=== PATIENT | female | born 1955 | race Caucasian/White ===

== ENCOUNTER → 2017-04-02 | Outpatient (CLI) | payer BC, OTHER ==
[~2017-04-02] MED LIST: CHOL5000 PO; HYDR-2374 PO; HYDR-3583 PO; METF850T PO; MOBI15TA PO; SELE200T17 PO; TIRO100C PO; TIRO25CA PO; VITA250T3 PO; VITACAP7 PO; ZANA2CAP PO
[2017-04-02 10:49] LABS: AUTOMATED NEUTROPHIL # 4.2 TH/MM3 (1.8-7.7); BASOPHIL % 0.5 % (0.0-2.0); EOSINOPHIL # 0.1 TH/MM3 (0-0.4); HEMATOCRIT 40.3 % (35.0-46.0); HEMO FLAGS DIFF FINAL; LYMPH % 33.2 % (9.0-44.0); LYMPHOCYTE # 2.4 TH/MM3 (1.0-4.8); MEAN CELL VOLUME 90.6 FL (80.0-100.0); MEAN CORPUSCULAR HEMOGLOBIN 31.2 PG (27.0-34.0); MEAN CORPUSCULAR HGB CONC 34.4 % (32.0-36.0); MONO % 5.6 % (0.0-8.0); NEUT % 59.7 % (16.0-70.0); PLATELET COUNT 288 TH/MM3 (150-450); RED BLOOD COUNT 4.44 MIL/MM3 (4.00-5.30); RED CELL DISTRIBUTION WIDTH 13.1 % (11.6-17.2); WHITE BLOOD COUNT 7.1 TH/MM3 (4.0-11.0)
[2017-04-02 10:55] LABS: BACTERIA, URINE RARE /hpf; BLOOD, URINE NEG (NEG); COMMENT (UR) CULT NOT INDICATED; CULTURE IF INDICATED CULT NOT INDICATED; GLUCOSE,URINE NEG (NEG); KETONE, URINE NEG (NEG); MUCUS URINE FEW /lpf (OCC); NITRITE,URINE NEG (NEG); SQUAMOUS EPITHELIAL CELL URINE <1 /hpf (0-5); URINE COLOR LIGHT-YELLOW (YELLW/STRAW)
[2017-04-02 10:58] LABS: APTT (PATIENT) 25.2 SEC (24.3-30.1); INTERNATIONAL NORMALIZED RATIO 0.9 RATIO; PROTHROMBIN TIME - PATIENT 9.8 SEC (9.8-11.6)
[2017-04-02 11:15] LABS: ANION GAP 8 MEQ/L (5-15); AST (GOT) 22 U/L (15-37); BLOOD UREA NITROGEN 10 MG/DL (7-18); CHLORIDE 101 MEQ/L (98-107); GLOMERULAR FILTRATION RATE 64 ML/MIN (>89); GLUCOSE,FASTING 108 MG/DL (74-99); POTASSIUM 3.8 MEQ/L (3.5-5.1); SODIUM (NA) 138 MEQ/L (136-145)
[2017-04-02 11:16] LABS: ALT (GPT) 49 U/L (10-53)
[2017-04-02 11:18] LABS: ALKALINE PHOSPHATASE 89 U/L (45-117); TOTAL BILIRUBIN ADULT 0.5 MG/DL (0.2-1.0)
--- NOTE | 2017-04-02 11:40 | RADRPT ---
EXAM DATE/TIME: 04/02/2017 11:09 [facility] COMPARISON: No previous studies available for comparison. INDICATIONS : Evaluate for pneumonia, pneumothorax or communicable disease. Pre-op for L4-5 laminectomy on 04/07/20 17 MEDICAL HISTORY : Diabetes mellitus type II. SURGICAL HISTORY : None. ENCOUNTER: Initial ACUITY: 1 day PAIN SCORE: 0/10 LOCATION: Bilateral chest FINDINGS: PA and lateral views of the chest demonstrate the lungs to be symmetrically aerated without evidence of mass, infiltrate or effusion. The cardiomediastinal contours are unremarkable. Osseous structure s are intact. CONCLUSION: No acute cardiopulmonary process. Ramon Escalera MD on April 02, 2017 at 11:37 Board Certified Radiologist. This report was verified electronically.
--- NOTE | 2017-04-02 17:56 | EKG ---
Date Performed: 04/02/2017 Time Performed: 10:34:49 PTAGE: 62 years EKG: SINUS BRADYCARDIA BORDERLINE ECG NO PREVIOUS TRACING DOCTOR: Perico Vazquez Interpretating Date/Time 04/02/2017 17:55:29
== END ==
LOC: CPRE 10:07
PROVIDERS: ATTEND Neurological Surgery
DX: Z01.812 Encounter for preprocedural laboratory examination (principal); Z01.811 Encounter for preprocedural respiratory examination; Z01.810 Encounter for preprocedural cardiovascular examination; Z01.818 Encounter for other preprocedural examination; R94.31 Abnormal electrocardiogram [ECG] [EKG]; M51.26 Other intervertebral disc displacement, lumbar region
CPT/HCPCS: 36415; 71020; 80053; 81001; 85025; 85610; 85730; 93005

== ENCOUNTER → 2017-04-07 | Day surgery (SDC) | payer OTHER ==
[~2017-04-07] MED LIST changes: +*ONDANSETRON 4 MG VIAL PERIprocedural Use ONLY ONE; +*PROMETHAZINE 25 MG/ML VIAL PERIprocedural use ONLY ONE; +*morphine SULFATE 8 MG/ML PERIprocedure ONLY ONE; +ACETAMINOPHEN 1000 MG/100 ML 100 ML IV ONE; +ACETAMINOPHEN 325 MG TAB PO PRN; +ACETAMINOPHEN/HYDROcodone 325 MG/10 MG TAB PO PRN; +ARTIFICIAL TEARS OPTH OINT 3.5 APPLIC/3.5 GM TUBO ONE; +ASCORBIC ACID 500 MG TAB PO SCH; +BUPIVACAINE/EPINEPHRINE 0.5% PF 30 ML VIAL ONE; +CHLORHEXIDINE GLUCONATE 2 % 1 PACK (2 CLOTHS) TOPICAL PRN; +CHLORHEXIDINE GLUCONATE 4% SOLN 120 ML BTL TOP SCH; +CHOLECALCIFEROL (VIT D3) 5000 UNIT CAP PO SCH; +CYCLOBENZAPRINE HCL 10 MG TAB PO PRN; +DEXAMETHASONE SOD PHOS 4 MG/ML VIAL ONE; +DEXTROSE 50% IN WATER 50 ML VIAL(D50) IV PUSH PRN; +DO NOT ADM ANY ANTICOAGULANT DRUGS PRN; +DOCUSATE SODIUM 100 MG CAP PO SCH; +GELFOAM SIZE 100 ONE; +GENTAMICIN SULFATE 80 MG/2 ML VIAL ONE; +GLUCAGON 1 MG/ML VIAL OTHER PRN; +GLYCOPYRROLATE 1 MG/5 ML SYRINGE IV PUSH ONE; +INSULIN ASPART SUPPLEMENTAL SCALE SQ SCH; +LACTATED RINGER'S 1000 ML INJ 1,000 ML IV SCH; +LACTATED RINGER'S 1000 ML IV PRN; +LEVOTHYROXINE SODIUM 75 MCG TAB PO SCH; +LIDOCAINE HCL 1% PF 5 ML AMPULE OTHER ONE; +MAGNESIUM HYDROXIDE SUSP 30 ML CUP PO PRN; +MENTHOL LOZENGE BUCCAL PRN; +METOPROLOL TARTRATE 25 MG TAB PO PRN; +MIDAZOLAM HCL 2 MG/2 ML VIAL IV ONE; -MOBI15TA PO; +MORPHINE SULFATE 2 MG/ML INJ IV PUSH PRN; +MORPHINE SULFATE 4 MG/ML INJ IV PUSH PRN; +NEOSTIGMINE 3 MG/3 ML SYR IV ONE; +ONDANSETRON HCL 4 MG/2 ML VIAL IV PUSH ONE; +ONDANSETRON HCL 4 MG/2 ML VIAL IV PUSH PRN; +PANTOPRAZOLE SOD 40 MG DELAYED RELEASE TAB PO SCH; +PHENYLEPH/NS 1000 MCG/10 ML SYR IV ONE; +PILL SPLITTER OTHER PRN; +POVIDONE IODINE 5% (ANTISEPSIS KIT) 4 APPLICATIONS EACH NARE PRN; +PROPOFOL 200 MG/20 ML AMP IV ONE; +RESP: ALBUTEROL 2.5 MG/3 ML NEB (PRN) INH; +ROCURONIUM INJ 50 MG/5 ML SYRINGE IV PUSH ONE; +SELENIUM 200 MG PO SCH; +SODIUM CHLORID 0.9% 500 ML IV PRN; +SODIUM CHLORIDE 0.9% FLUSH 10 ML FLUSH IV FLUSH PRN; +SODIUM CHLORIDE 0.9% FLUSH 10 ML FLUSH IV FLUSH SCH; +THROMBIN (TOPICAL) 5,000 UNIT VIAL ONE; -TIRO25CA PO; +VITAMIN B COMPLEX/VIT C TAB PO SCH; +ZOLPIDEM TARTRATE 5 MG TAB PO PRN; +ceFAZolin 2 GM PREMIX 50 ML IV SCH; +cloNIDine HCL 0.1 MG TAB PO/NG PRN; +methylPREDNISolone ACETATE 40 MG/ML VIAL ONE
[2017-04-07] MEDS: SODIUM CHLOR 0.9% 1000 ML INJ 1,000 ML IV SCH ×2 (12:13→12:27)
--- NOTE | 2017-04-07 14:08 | HHI.DCPOC ---
Discharge Care Plan Diagnosis: (1) S/P lumbar laminectomy Goals to Promote Your Health * To prevent worsening of your condition and complications * To maintain your health at the optimal level Directions to Meet Your Goals Take your medications as prescribed Follow your dietary instruction Follow activity as directed Keep your appointments as scheduled Take your immunizations and boosters as scheduled If your symptoms worsen call your PCP, if no PCP go to Urgent Care Center or Emergency Room Smoking is Dangerous to Your Health. Avoid second hand smoke Call the 24-hour hour crisis hotline for domestic abuse at Tayla Obrien Apr 07, 2017 14:08
[2017-04-07 15:15] VITALS: BP 107/58; PULSE 87; RESP 16; TEMP 97.9; O2SAT 96
--- NOTE | 2017-04-07 15:23 | PD.OP ---
Operative Report Date of Surgery: Apr 07, 2017 Preoperative Diagnosis: L4-5 disk herniation Postoperative Diagnosis: L4-5 disk herniation Procedure: Right L4-5 hemilaminectomy and microdiscectomy Anesthesia: general Surgeon: Deangelo Dumont Pelota Maker(s): Leyda Polanco Operation and Findings: INDICATIONS FOR THE SURGICAL PROCEDURE Ms Otto is a 62 year-old female who presented with intractable back pain and clinical evidence of right L5 lower extremity radiculopathy. She was found to have a larg disk herniation and extrusion causing stenosis with significant mass effect on the neural structures which correlated with the clinical symptoms. She has failed maximum nonsurgical management. A surgical decompression were indicated as a last resort. The [id number] details of the procedure, indications, alternatives, risks and potential complications were fully discussed with the patient. The patient fully understood. All the questions were answered. No guarantees were given. The patient voiced requesting the procedure and signes informed consents. The patient was offered the alternative of delaying the procedure and continuing with nonsurgical management. DETAILS OF THE SURGICAL PROCEDURE After the induction of general anesthesia, endotracheal intubation was performed. A Richardson catheter, bilateral BRYAN hose and sequential compression devices were placed and kept throughout the procedure. The patient was positioned prone on a Chaitanya table over a Eh frame. All pressure points were carefully padded with eggcrate mattress. The eyes were tapped shut after ointment was applied by the anesthesiologist to prevent corneal abrasion. A Dean hugger was placed over the exposed lower body to maintain control of the core body temperature. The lower lumbar region was prepped and draped in the usual sterile fashion. A spinal needle was placed for localization and an x- ray performed with a C-arm. A skin incision was made in the midline over the spinous processes L4-5 with a # 10 blade. Small subcutaneous bleeders were controlled with a bipolar and the dissection was carried out through the lumbar fascia exposing the spinous processes. A subperiosteal dissection was performed with a Mccormack elevator and a Bovie over the right L4-L5 spinous process lamina and facets. A microdiscectomy self-retaining retractor was placed on the incision and an x- ray was obtained with an instrument placed underneath the lamina. At this point in the procedure the operating microscope was draped in the usual sterile fashion and brought to the field. The rest of the surgical procedure was performed using microsurgical dissection technique with exception of the closure. Once the level was confirmed, a right decompressive laminectomy was performed at L4-L5. using the TPS drill with an AM-8 drill bit. A medial facetectomy was performed and the superior free border of the ligamentum flavum was dissected with a ligament dissector and removed with a thin footplate 2 mm Kerrison The medial facetectomy allowed me to expose the L5 nerve root, which was identified and followed towards its exit in the foramen. Epidural veins located laterally to the dural sac were coagulated with a bipolar and incised with microscissors. Gentle medial retraction of the dural sac allowed inspection of the disc space. The patient had a disc herniation and extrusion, causing mass effect over the exiting nerve root. The annulus fibrosus of the disc was coagulated with the bipolar and incised with an 11 blade. The extruded disc was carefully dissected from the surrounding tissue and removed with pituitary forceps. Then, a microdiscectomy was carried out in the standard fashion using straight and up-biting pituitary forceps. A good decompression of the dural sac and nerve root was achieved. The exit of the nerve root was inspected for residual disc fragments and hemostasis was secured with the bipolar. The incision was irrigated with a large amount of saline solution. A Valsalva maneuver failed to show any cerebrospinal fluid leak or bleeding. The decompression was assessed again and found to be satisfactory. The incision was then closed in layers. The fascia was closed with 0 Vicryl sutures in an interrupted fashion. The superficial fascia was closed with 0 Vicryl sutures. The fascia was infiltrated with 0.5% Marcaine with epinephrine 1:100,000 dilution. The subcutaneous tissue was irrigated then closed with 0 Vicryl and 3 -0 Vicryl. The skin was closed with 4-0 running subcuticular Vicryl. Dermabond was applied to the skin. A sterile dressing was applied. At the end of the procedure, the sponge, needle and instrument counts were all correct. Estimated blood loss was less than 50-60. cc. No blood transfusion was given. No intraoperative complications occurred. The patient received prophylactic antibiotics. The patient was then extubated and transferred to the recovery room in stable condition. Deangelo Dumont MD Apr 07, 2017 15:23
--- NOTE | 2017-04-08 07:44 | RADRPT ---
EXAM DATE/TIME: 04/07/2017 09:42 [facility] COMPARISON: No previous studies available for comparison. INDICATIONS : Herniated disk, laminectomy discectomy L4-L5. MEDICAL HISTORY : None. SURGICAL HISTORY : None. ENCOUNTER: Initial ACUITY: 1 day PAIN SCORE: Non-responsive. LOCATION: Right lumbar spine. FINDINGS: A single lateral view of the lumbar spine was performed. A posterior localizer is identified. The loc alizer is located at the L4-5 disc space. CONCLUSION: Level localizer at the L4-5 disc space. Aditya Rodriges MD on April 08, 2017 at 7:42 Board Certified Radiologist. This report was verified electronically.
== END | disposition home or self-care (01) ==
LOC: HSDC 06:25 → HSDI 11:35 → UNDOADMOB 11:35
PROVIDERS: ATTEND Neurological Surgery
DX: M51.26 Other intervertebral disc displacement, lumbar region (principal); E11.9 Type 2 diabetes mellitus without complications; E03.9 Hypothyroidism, unspecified; Z79.84 Long term (current) use of oral hypoglycemic drugs; Z85.820 Personal history of malignant melanoma of skin
CPT/HCPCS: 00630; 63030; 72020; 76000; 82948; J0131; J0690; J1030; J1100; J1580; J2250; J2270; J2370; J2405; J2550; J2710; J3010; J7030; J7120; L0627

== ENCOUNTER 2017-06-28 12:17 | Observation (INO) | payer OTHER ==
[~2017-06-28] VITALS: Ht 160 cm; Wt 62.0 kg
[~2017-06-28 12:17] MED LIST changes: -*ONDANSETRON 4 MG VIAL PERIprocedural Use ONLY ONE; -*PROMETHAZINE 25 MG/ML VIAL PERIprocedural use ONLY ONE; -*morphine SULFATE 8 MG/ML PERIprocedure ONLY ONE; -ACETAMINOPHEN 1000 MG/100 ML 100 ML IV ONE; -ACETAMINOPHEN 325 MG TAB PO PRN; -ACETAMINOPHEN/HYDROcodone 325 MG/10 MG TAB PO PRN; -ARTIFICIAL TEARS OPTH OINT 3.5 APPLIC/3.5 GM TUBO ONE; -ASCORBIC ACID 500 MG TAB PO SCH; -BUPIVACAINE/EPINEPHRINE 0.5% PF 30 ML VIAL ONE; -CHLORHEXIDINE GLUCONATE 2 % 1 PACK (2 CLOTHS) TOPICAL PRN; -CHLORHEXIDINE GLUCONATE 4% SOLN 120 ML BTL TOP SCH; -CHOLECALCIFEROL (VIT D3) 5000 UNIT CAP PO SCH; -CYCLOBENZAPRINE HCL 10 MG TAB PO PRN; -DEXAMETHASONE SOD PHOS 4 MG/ML VIAL ONE; -DEXTROSE 50% IN WATER 50 ML VIAL(D50) IV PUSH PRN; -DO NOT ADM ANY ANTICOAGULANT DRUGS PRN; -DOCUSATE SODIUM 100 MG CAP PO SCH; +FENT50DI T-DERMAL; -GELFOAM SIZE 100 ONE; -GENTAMICIN SULFATE 80 MG/2 ML VIAL ONE; -GLUCAGON 1 MG/ML VIAL OTHER PRN; -GLYCOPYRROLATE 1 MG/5 ML SYRINGE IV PUSH ONE; -INSULIN ASPART SUPPLEMENTAL SCALE SQ SCH; -LACTATED RINGER'S 1000 ML INJ 1,000 ML IV SCH; -LACTATED RINGER'S 1000 ML IV PRN; -LEVOTHYROXINE SODIUM 75 MCG TAB PO SCH; -LIDOCAINE HCL 1% PF 5 ML AMPULE OTHER ONE; -MAGNESIUM HYDROXIDE SUSP 30 ML CUP PO PRN; -MENTHOL LOZENGE BUCCAL PRN; -METOPROLOL TARTRATE 25 MG TAB PO PRN; -MIDAZOLAM HCL 2 MG/2 ML VIAL IV ONE; -MORPHINE SULFATE 2 MG/ML INJ IV PUSH PRN; -MORPHINE SULFATE 4 MG/ML INJ IV PUSH PRN; -NEOSTIGMINE 3 MG/3 ML SYR IV ONE; -ONDANSETRON HCL 4 MG/2 ML VIAL IV PUSH ONE; -ONDANSETRON HCL 4 MG/2 ML VIAL IV PUSH PRN; -PANTOPRAZOLE SOD 40 MG DELAYED RELEASE TAB PO SCH; -PHENYLEPH/NS 1000 MCG/10 ML SYR IV ONE; -PILL SPLITTER OTHER PRN; -POVIDONE IODINE 5% (ANTISEPSIS KIT) 4 APPLICATIONS EACH NARE PRN; -PROPOFOL 200 MG/20 ML AMP IV ONE; -RESP: ALBUTEROL 2.5 MG/3 ML NEB (PRN) INH; -ROCURONIUM INJ 50 MG/5 ML SYRINGE IV PUSH ONE; -SELENIUM 200 MG PO SCH; -SODIUM CHLORID 0.9% 500 ML IV PRN; -SODIUM CHLORIDE 0.9% FLUSH 10 ML FLUSH IV FLUSH PRN; -SODIUM CHLORIDE 0.9% FLUSH 10 ML FLUSH IV FLUSH SCH; -THROMBIN (TOPICAL) 5,000 UNIT VIAL ONE; -VITAMIN B COMPLEX/VIT C TAB PO SCH; -ZOLPIDEM TARTRATE 5 MG TAB PO PRN; -ceFAZolin 2 GM PREMIX 50 ML IV SCH; -cloNIDine HCL 0.1 MG TAB PO/NG PRN; -methylPREDNISolone ACETATE 40 MG/ML VIAL ONE
[2017-06-28 12:51] VITALS: BP 148/81; PULSE 82; RESP 20; TEMP 97.4; O2SAT 97
[2017-06-28] MEDS ORDERED: MOBI15TA PO (13:07)
[2017-06-28] MEDS: SODIUM CHLOR 0.9% 1000 ML INJ 1,000 ML IV SCH (13:15)
[2017-06-28 13:37] LABS: HEMATOCRIT 35.4 % (35.0-46.0); HEMOGLOBIN 12.2 GM/DL (11.6-15.3); MEAN CELL VOLUME 89.3 FL (80.0-100.0); MEAN CORPUSCULAR HEMOGLOBIN 30.8 PG (27.0-34.0); MEAN CORPUSCULAR HGB CONC 34.5 % (32.0-36.0); MEAN PLATELET VOLUME 7.4 FL (7.0-11.0); PLATELET COUNT 298 TH/MM3 (150-450); RED BLOOD COUNT 3.97 MIL/MM3 (4.00-5.30); RED CELL DISTRIBUTION WIDTH 13.7 % (11.6-17.2); WHITE BLOOD COUNT 6.2 TH/MM3 (4.0-11.0)
[2017-06-28 13:38] LABS: AUTOMATED NEUTROPHIL # 3.6 TH/MM3 (1.8-7.7); BASOPHIL % 0.4 % (0.0-2.0); EOSINOPHIL % 0.6 % (0.0-4.0); LYMPH % 33.7 % (9.0-44.0); LYMPHOCYTE # 2.1 TH/MM3 (1.0-4.8); MONO % 6.2 % (0.0-8.0); MONOCYTE # 0.4 TH/MM3 (0-0.9); NEUT % 59.1 % (16.0-70.0)
[2017-06-28] MEDS ORDERED: MENTHOL LOZENGE BUCCAL PRN (14:15)
[2017-06-28] MEDS ORDERED: MAGNESIUM HYDROXIDE SUSP 30 ML CUP PO PRN (15:00)
[2017-06-28] MEDS ORDERED: ONDANSETRON HCL 4 MG/2 ML VIAL IV PUSH PRN (15:00)
[2017-06-28] MEDS ORDERED: ACETAMINOPHEN 325 MG TAB PO PRN (15:00)
[2017-06-28] MEDS ORDERED: ACETAMINOPHEN/HYDROcodone 325 MG/10 MG TAB PO PRN ×2 (15:00)
[2017-06-28] MEDS ORDERED: RESP: ALBUTEROL 2.5 MG/3 ML NEB (PRN) INH (15:00)
[2017-06-28] MEDS ORDERED: MORPHINE SULFATE 4 MG/ML INJ IV PUSH PRN ×2 (15:00)
[2017-06-28] MEDS ORDERED: CYCLOBENZAPRINE HCL 10 MG TAB PO PRN (15:00)
[2017-06-28] MEDS ORDERED: cloNIDine HCL 0.1 MG TAB PO/NG PRN (15:00)
[2017-06-28] MEDS ORDERED: MIDAZOLAM HCL 2 MG/2 ML VIAL ONE (15:17)
[2017-06-28 15:55] VITALS: BP 130/77; PULSE 75; RESP 16; TEMP 98.5; O2SAT 99
[2017-06-28 16:10] VITALS: BP 130/77; PULSE 65; RESP 20; O2SAT 100
--- NOTE | 2017-06-28 16:10 | RADRPT ---
EXAM DATE/TIME: 06/28/2017 15:24 [facility] COMPARISON: No previous studies available for comparison. INDICATIONS : Patient with a history of pain in low back. MEDICAL HISTORY : Diabetes Hypothyroidism Melanoma Herniated lumbar disc SURGICAL HISTORY : Tonsillectomy Hysterectomy Bilateral mastectomy Microdiscectomy ENCOUNTER: Initial ACUITY: 3 months PAIN SCORE: 4/10 LOCATION: low back FLUORO TIME: 3.3 minutes IMAGE SERIES: 0 SEDATION TIME: 30 minutes MEDICATION(S): 1.) 1.5 mg midazolam (Versed) IV 2.) 75 mcg fentanyl (Sublimaze) IV DEVICE(S): 1.) 22 gauge Chiba needle Core specimen(s) was obtained and submitted to laboratory for pathologic evaluation. PROCEDURE : 1. Fluoroscopically guided needle biopsy. 2. Conscious sedation with continuous EKG and Oximetry monitoring. The risks, benefits and alternatives to the procedure were explained and verbal and written consent w as obtained. The site was prepped in sterile fashion. Full sterile technique was used, including cap, mask, steri le gloves and gown and a large sterile sheet. Hand hygiene and 2% chlorhexidine and/or betadine/alco hol prep was utilized per protocol for cutaneous antisepsis. The skin and subcutaneous tissues were infiltrated with local anesthetic solution. With fluoroscopic guidance the L4-L5 disc was punctured and bloody fluid was aspirated and sent to e lab for culture and sensitivity. Conscious sedation was performed with the prescribed dosages and duration as above in the presence of an independent trained radiology nurse to assist in the monitoring of the patient. EKG and oximetry remained stable throughout the procedure. CONCLUSION: Uncomplicated needle biopsy of the L4-L5 discs as above. Benedict Rivera MD on June 28, 2017 at 16:07 Board Certified Radiologist. This report was verified electronically.
--- NOTE | 2017-06-28 16:30 | PD.RAD ---
Post Procedure Progress Note Pre Procedure Diagnosis: (1) Discitis Post Procedure Diagnosis: (1) Discitis Procedure Date: Jun 28, 2017 Supervising Radiologist: Benedict Rivera Proceduralist/Assist: Clairssa Flor, RT(R), Maryjo Freeman RT(R)() Anesthesia: Conscious Sedation Plan of Activity Patient to Unit: Nursing Unit Patient Condition: Good See PACS Report for procedural detail/treatment Spinal Procedure Disc Aspiration L4-L5 Fluid Description: Bloody Benedict Rivera MD Jun 28, 2017 16:30
[2017-06-28 16:40] VITALS: BP 121/66; PULSE 63; RESP 20; O2SAT 99
[2017-06-28] MEDS ORDERED: GLUCAGON 1 MG/ML VIAL OTHER PRN (16:45)
[2017-06-28] MEDS ORDERED: DEXTROSE 50% IN WATER 50 ML VIAL(D50) IV PUSH PRN (16:45)
[2017-06-28] MEDS: INSULIN ASPART SUPPLEMENTAL SCALE SQ SCH ×2 (17:00→21:00)
--- NOTE | 2017-06-28 17:00 | HHI.HP ---
(Tayla Obrien) [facility] Service Neurosurgery Primary Care Physician Freda Knox MD History of Present Illness Ms. Otto is 62 year old female who underwent an L4-5 laminectomy with microdiscectomy for herniated lumbar disc with lumbar radiculopathy on . Following surgery she had improvements of her pain and symptoms. She was doing well until a month following her surgery she developed recurrent pain in her low back. There were no associated trauma or falls. She underwent an epidural injection with Dr. Abbott with improvement. She also recently underwent a follow-up MRI of her lumbar spine few days ago which showed edematous changes throughout the vertebral endplates at L4-5 and with contrast enhancement within the disc. She had presented today for CT-guided biopsy of L4 -5 for culturing. She currently denies fevers, chills. She reports of lumbar pain. She denies chest pain, shortness of breath or difficulty breathing. She is afebrile, normal WBCs. (Tayla Obrien) Review of Systems Constitutional: DENIES: Fever, Chills Eyes: DENIES: Diplopia, Vision loss Respiratory: DENIES: Apneas, Hemoptysis, Shortness of breath Cardiovascular: DENIES: Chest pain, Palpitations Gastrointestinal: DENIES: Abdominal pain, Nausea Genitourinary: DENIES: Urinary incontinence Musculoskeletal: COMPLAINS OF: Back pain Neurologic: DENIES: Headache Psychiatric: DENIES: Hallucinations (Tayla Obrien) Past Family Social History Allergies: Coded Allergies: No Known Allergies (Verified Allergy, Unknown, 06/28/17) Past Medical History Diabetes mellitus Hypothyroidism Skin cancer (melanoma) Past Surgical History lumbar laminectomy Tonsillectomy Reported Medications reviewed in EMR Active Ordered Medications Current Medications Medications (Trade) Dose Ordered Sig/Rebekah Route PRN Reason Start Time Stop Time Status Last Admin Dose Admin Sodium Chloride 1,000 ml @ 30 mls/hr Q24H IV 06/28/17 13:15 06/28/17 13:15 Docusate Sodium (Colace) 100 mg BID PO 06/28/17 21:00 Magnesium Hydroxide (Milk Of Magnesia Liq) 30 ml DAILY PRN PO CONSTIPATION 06/28/17 15:00 Pantoprazole Sodium (Protonix) 40 mg DAILY PO 06/29/17 09:00 Ondansetron HCl (Zofran Inj) 4 mg Q6H PRN IV PUSH NAUSEA OR VOMITING 06/28/17 15:00 Acetaminophen/ Hydrocodone Bitart ([place] 10-325 Mg) 1 tab Q4H PRN PO PAIN SCALE 1 TO 5 06/28/17 15:00 Acetaminophen/ Hydrocodone Bitart ([place] 10-325 Mg) 2 tab Q4H PRN PO PAIN SCALE 6 TO 10 06/28/17 15:00 Morphine Sulfate (Morphine Inj) 2 mg Q2H PRN IV PUSH SEE LABEL COMMENTS 06/28/17 15:00 Morphine Sulfate (Morphine Inj) 4 mg Q2H PRN IV PUSH SEE LABEL COMMENTS 06/28/17 15:00 Cyclobenzaprine HCl (Flexeril) 10 mg Q8H PRN PO MUSCLE SPASM 06/28/17 15:00 Clonidine (Catapres) 0.1 mg Q6H PRN PO/NG SYS BP GREATER THAN 170 MMHG 06/28/17 15:00 Acetaminophen (Tylenol) 650 mg Q4H PRN PO TEMPERATURE > 101.5 F 06/28/17 15:00 Menthol ([place] Rafael) 1 lozenge UNSCH PRN BUCCAL SORE THROAT 06/28/17 14:15 Albuterol Sulfate (Albuterol Neb) 2.5 mg Q4HR NEB PRN INH WHEEZING 06/28/17 15:00 Vancomycin/Sodium Chloride 200 ml @ 250 mls/hr Q12HR IV 06/28/17 21:00 07/01/17 20:59 Family History Cerebrovascular accident G8 FATHER Diabetes mellitus G8 BROTHER G8 SISTER Social History 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 (Tayla Obrien) Physical Exam Vital Signs Vital Signs Date Time Temp Pulse Resp B/P (MAP) Pulse Ox O2 Delivery O2 Flow Rate FiO2 06/28/17 16:10 65 20 130/77 (94) 100 06/28/17 15:55 98.5 75 16 130/77 (94) 99 06/28/17 13:14 97 Room Air 06/28/17 12:51 97.4 82 20 148/81 (103) 97 Laboratory Laboratory Tests Test 06/28/17 13:20 White Blood Count 6.2 Red Blood Count 3.97 Hemoglobin 12.2 Hematocrit 35.4 Mean Corpuscular Volume 89.3 Mean Corpuscular Hemoglobin 30.8 Mean Corpuscular Hemoglobin Concent 34.5 Red Cell Distribution Width 13.7 Platelet Count 298 Mean Platelet Volume 7.4 Neutrophils (%) (Auto) 59.1 Lymphocytes (%) (Auto) 33.7 Monocytes (%) (Auto) 6.2 Eosinophils (%) (Auto) 0.6 Basophils (%) (Auto) 0.4 Neutrophils # (Auto) 3.6 Lymphocytes # (Auto) 2.1 Monocytes # (Auto) 0.4 Eosinophils # (Auto) 0.0 Basophils # (Auto) 0.0 CBC Comment DIFF FINAL Differential Comment Prothrombin Time 10.0 Prothromb Time International Ratio 1.0 Activated Partial Thromboplast Time 24.7 (Tayla Obrien) Result Diagram: 06/28/17 1320 Imaging MRI Lumbar spine 06/26/17 [facility] FINDINGS: The most caudal-appearing lumbar vertebra is numbered as L5. Sagittal T1, T2 and postcontrast T1-weighted imaging is provided. The T1 and T2- weighted images demonstrate edematous changes across the vertebral endplates at the L4/5 level. On the postcontrast T1-weighted imaging there is extensive contrast enhancement involving the endplates of L4 and L5 as well. There is a small amount of fluid identified within the disc space. In the appropriate clinical setting, this is concerning for a discitis. Comparison is made back to a previous exam dated 05/18/2017. These demonstrate a significant increase in the amount of edema within the vertebral endplates. The fluid within the disc space appears new. While there is some enhancement of the dura adjacent to the L4 and L5 vertebral bodies. There is no fluid collection to suggest epidural abscess. There are postsurgical changes within the soft tissues. The cord terminates in its appropriate location. The paraspinous soft tissues are unremarkable. T12-L1: The thecal sac has a normal diameter. No evidence of disc bulge or protrusion. The neural foramina are patent bilaterally. L1-L2: There is partial desiccation of the disc. The thecal space and foramina are adequate. L2-L3: There is desiccation of the disc with minimal disc bulge. The thecal space and neural foramina are adequate. The facet joints are intact. L3-L4: There is desiccation of the disc with a broad-based disc bulge. This just effaces the ventral thecal sac. There is mild facet arthritis bilaterally. The thecal space and foramina appear adequate. L4-L5: The large extruded disc fragment which was seen on previous study has been removed. There is extensive contrast enhancement involving the vertebral endplates. There is enhancing soft tissue seen projecting into the lateral recess and encasing the exiting right L4 nerve root. There is some enhancement within the dura. There is no significant epidural fluid collection. There are postsurgical changes within the soft tissues and the lamina on the right side. There is a small amount of residual or recurrent disc bulge remaining. Please see above discussion. L5-S1: There is a desiccated, degenerated disc with central and left-sided disc protrusion. There is disc evident effacing the lateral recess and encroaching upon the base of the foramina on the left. The foramina on the right is adequate. There is mild facet arthritis bilaterally. CONCLUSION: 1. The examination demonstrates postsurgical changes at the L4-5 level. There are edematous changes throughout the vertebral endplates, diffuse contrast enhancement and a small amount of fluid within the disc. The overall amount of edema has increased when compared to the previous examination dated 05/18/2017. In the appropriate clinical setting, this is concerning for a discitis. 2. Degenerated disc with small left-sided disc protrusion at L5-S1. 3. Degenerative changes in the remainder of the lumbar spine as listed above. (Tayla Obrien) Caprini VTE Risk Assessment Caprini VTE Risk Assessment: Mod/High Risk (score >= 2) VTE Pharm Contraindication: s/p L4-5 biopsy Caprini Risk Assessment Model Point Value = 1 Point Value = 2 Point Value = 3 Point Value = 5 Age 41-60 Minor surgery BMI > 25 kg/m2 Swollen legs Varicose veins or History of unexplained or recurrent spontaneous Oral contraceptives or hormone replacement Sepsis (< 1 month) Serious lung disease, including pneumonia (< 1 month) Abnormal pulmonary function Acute myocardial infarction Congestive heart failure (< 1 month) History of inflammatory bowel disease Medical patient at bed rest Age 61-74 Arthroscopic surgery Major open surgery (> 45 min) Laparoscopic surgery (> 45 min) Malignancy Confined to bed (> 72 hours) Immobilizing plaster cast Central venous access Age >= 75 History of VTE Family history of VTE Factor V Leiden Prothrombin [id number] Lupus anticoagulant Anticardiolipin antibodies Elevated serum homocysteine Heparin-induced thrombocytopenia Other congenital or acquired thrombophilia Stroke (< 1 month) Elective arthroplasty Hip, pelvis, or leg fracture Acute spinal cord injury (< 1 month) Prophylaxis Regimen Total Risk Factor Score Risk Level Prophylaxis Regimen 0-1 Low Early ambulation 2 Moderate Order ONE of the following: *Sequential Compression Device (SCD) *Heparin 5000 units SQ BID 3-4 Higher Order ONE of the following medications: *Heparin 5000 units SQ TID *Enoxaparin/Lovenox 40 mg SQ daily (WT < 150 kg, CrCl > 30 mL/min) *Enoxaparin/Lovenox 30 mg SQ daily (WT < 150 kg, CrCl > 10-29 mL/min) *Enoxaparin/Lovenox 30 mg SQ BID (WT < 150 kg, CrCl > 30 mL/min) AND/OR *Sequential Compression Device (SCD) 5 or more Highest Order ONE of the following medications: *Heparin 5000 units SQ TID (Preferred with Epidurals) *Enoxaparin/Lovenox 40 mg SQ daily (WT < 150 kg, CrCl > 30 mL/min) *Enoxaparin/Lovenox 30 mg SQ daily (WT < 150 kg, CrCl > 10-29 mL/min) *Enoxaparin/Lovenox 30 mg SQ BID (WT < 150 kg, CrCl > 30 mL/min) AND *Sequential Compression Device (SCD) (Tayla Obrien) Assessment and Plan Assessment and Plan Ms. Otto underwent a follow-up MRI lumbar spine outpatient which showed inflammatory changes concerning for possible infection. She underwent today a CT-guided biopsy of L4-5 disc to rule out infection. Follow-up with cultures. She will be started on antibiotics on vancomycin 1 g every 12 hours. Monitor for fever. Neuro: cont neuro checks Protonix for GI prophylaxis. DVT: SCDs and TEDs for DVT prophylaxis. Respiratory: breathing treatments with nebulizers prn Nutrition: Diabetic Diet Endocrine: glucose monitoring with insulin SS, hold home Metformin Renal: BUN and creatinine (Tayla Obrien) Attending Statement The exam, history, and the medical decision-making described in the above note were completed with the assistance of the mid-level provider. I reviewed and agree with the findings presented. I attest that I had a [id number] encounter with the patient on the same day, and personally performed and documented my assessment and findings in the medical record. (Deangelo Dumont MD) Tayla Obrien Jun 28, 2017 17:00 Deangelo Dumont MD Jul 03, 2017 11:14
[2017-06-28 20:00] VITALS: BP 120/65; PULSE 92; RESP 18; TEMP 98.2; O2SAT 97
[2017-06-28] MEDS: DOCUSATE SODIUM 100 MG CAP PO SCH (21:01)
[2017-06-28] MEDS: VANCOMYCIN 1 GM/200 ML INJ 200 ML IV SCH (21:01)
[2017-06-29] VITALS: BP 109/67; PULSE 71; RESP 18; TEMP 98.2; O2SAT 96
[2017-06-29 04:00] VITALS: BP 116/68; PULSE 68; RESP 20; TEMP 98; O2SAT 97
[2017-06-29] MEDS: LEVOTHYROXINE SODIUM 100 MCG TAB PO SCH (06:01)
[2017-06-29] MEDS: INSULIN ASPART SUPPLEMENTAL SCALE SQ SCH ×4 (07:52→20:21)
[2017-06-29 08:00] VITALS: BP 137/70; PULSE 68; RESP 16; TEMP 98; O2SAT 95
[2017-06-29] MEDS: MELOXICAM 15 MG TAB PO SCH (08:27)
[2017-06-29] MEDS: DOCUSATE SODIUM 100 MG CAP PO SCH ×2 (08:27→20:20)
[2017-06-29] MEDS: CHOLECALCIFEROL (VIT D3) 5000 UNIT CAP PO SCH (08:27)
[2017-06-29] MEDS: PANTOPRAZOLE SOD 40 MG DELAYED RELEASE TAB PO SCH (08:27)
[2017-06-29] MEDS: ASCORBIC ACID 500 MG TAB PO SCH (08:27)
[2017-06-29] MEDS: VANCOMYCIN 1 GM/200 ML INJ 200 ML IV SCH ×2 (08:27→20:19)
[2017-06-29] MEDS ORDERED: NON-FORMULARY DRUG (B-Complex Vitamins (B Complex) 1 CAP) PO SCH (09:00)
[2017-06-29] MEDS ORDERED: ASCORBIC ACID 1000 MG PO SCH (09:00)
[2017-06-29] MEDS ORDERED: SELENIUM 200 MG PO SCH ×2 (09:00)
[2017-06-29] MEDS ORDERED: VITAMIN B COMPLEX PO SCH (09:00)
--- NOTE | 2017-06-29 10:57 | HHI.NSPN ---
Note Status Status: Progress Note Interval History Interval History Ms. Otto is 62 year old female who underwent an L4-5 laminectomy with microdiscectomy for herniated lumbar disc with lumbar radiculopathy on . Following surgery she had improvements of her pain and symptoms. She was doing well until a month following her surgery she developed recurrent pain in her low back. There were no associated trauma or falls. She underwent an epidural injection with Dr. Abbott with improvement. She also recently underwent a follow-up MRI of her lumbar spine few days ago which showed edematous changes throughout the vertebral endplates at L4-5 and with contrast enhancement within the disc. She had presented today for CT-guided biopsy of L4 -5 for culturing. She currently denies fevers, chills. She reports of lumbar pain. She denies chest pain, shortness of breath or difficulty breathing. She is afebrile, normal WBCs. 06/29: currently doing well, minimal back pain. Remains afebrile overnight. Cultures pending. Labs, Micro, & Vital Signs Results Date Time Temp Pulse Resp B/P (MAP) Pulse Ox O2 Delivery O2 Flow Rate FiO2 06/29/17 08:00 98.0 68 16 137/70 (92) 95 06/29/17 04:00 98.0 68 20 116/68 (84) 97 06/29/17 00:00 98.2 71 18 109/67 (81) 96 06/28/17 20:00 98.2 92 18 120/65 (83) 97 06/28/17 16:40 63 20 121/66 (84) 99 06/28/17 16:10 65 20 130/77 (94) 100 06/28/17 15:55 98.5 75 16 130/77 (94) 99 06/28/17 13:14 97 Room Air 06/28/17 12:51 97.4 82 20 148/81 (103) 97 06/30/17 07:00 Intake Total 200 ml Balance 200 ml Constitutional Vital Signs Date Time Temp Pulse Resp B/P (MAP) Pulse Ox O2 Delivery O2 Flow Rate FiO2 06/29/17 08:00 98.0 68 16 137/70 (92) 95 06/29/17 04:00 98.0 68 20 116/68 (84) 97 06/29/17 00:00 98.2 71 18 109/67 (81) 96 06/28/17 20:00 98.2 92 18 120/65 (83) 97 06/28/17 16:40 63 20 121/66 (84) 99 06/28/17 16:10 65 20 130/77 (94) 100 06/28/17 15:55 98.5 75 16 130/77 (94) 99 06/28/17 13:14 97 Room Air 06/28/17 12:51 97.4 82 20 148/81 (103) 97 06/30/17 07:00 Intake Total 200 ml Balance 200 ml Medications Current Medications Current Medications Medications (Trade) Dose Ordered Sig/Rebekah Route PRN Reason Start Time Stop Time Status Last Admin Dose Admin Sodium Chloride 1,000 ml @ 30 mls/hr Q24H IV 06/28/17 13:15 06/28/17 13:15 Docusate Sodium (Colace) 100 mg BID PO 06/28/17 21:00 06/29/17 08:27 Magnesium Hydroxide (Milk Of Magnesia Liq) 30 ml DAILY PRN PO CONSTIPATION 06/28/17 15:00 Pantoprazole Sodium (Protonix) 40 mg DAILY PO 06/29/17 09:00 06/29/17 08:27 Ondansetron HCl (Zofran Inj) 4 mg Q6H PRN IV PUSH NAUSEA OR VOMITING 06/28/17 15:00 Acetaminophen/ Hydrocodone Bitart ([place] 10-325 Mg) 1 tab Q4H PRN PO PAIN SCALE 1 TO 5 06/28/17 15:00 06/29/17 06:04 Acetaminophen/ Hydrocodone Bitart ([place] 10-325 Mg) 2 tab Q4H PRN PO PAIN SCALE 6 TO 10 06/28/17 15:00 06/29/17 10:06 Morphine Sulfate (Morphine Inj) 2 mg Q2H PRN IV PUSH SEE LABEL COMMENTS 06/28/17 15:00 Morphine Sulfate (Morphine Inj) 4 mg Q2H PRN IV PUSH SEE LABEL COMMENTS 06/28/17 15:00 06/28/17 19:52 Cyclobenzaprine HCl (Flexeril) 10 mg Q8H PRN PO MUSCLE SPASM 06/28/17 15:00 Clonidine (Catapres) 0.1 mg Q6H PRN PO/NG SYS BP GREATER THAN 170 MMHG 06/28/17 15:00 Acetaminophen (Tylenol) 650 mg Q4H PRN PO TEMPERATURE > 101.5 F 06/28/17 15:00 Menthol (Freeman Rafael) 1 lozenge UNSCH PRN BUCCAL SORE THROAT 06/28/17 14:15 Albuterol Sulfate (Albuterol Neb) 2.5 mg Q4HR NEB PRN INH WHEEZING 06/28/17 15:00 Vancomycin/Sodium Chloride 200 ml @ 250 mls/hr Q12HR IV 06/28/17 21:00 07/01/17 20:59 06/29/17 08:27 Dextrose (D50w (Vial) Inj) 50 ml UNSCH PRN IV PUSH HYPOGLYCEMIA-SEE COMMENTS 06/28/17 16:45 Glucagon (Glucagon Inj) 1 mg UNSCH PRN OTHER HYPOGLYCEMIA-SEE COMMENTS 06/28/17 16:45 Insulin Aspart (NovoLOG SUPPLEMENTAL SCALE) 1 ACHS SLIDING SCALE SQ 06/28/17 17:00 Cholecalciferol (Vitamin D3) 5,000 units DAILY PO 06/29/17 09:00 06/29/17 08:27 Levothyroxine Sodium (Synthroid) 75 mcg DAILY@0600 PO 06/29/17 06:00 06/29/17 06:01 Meloxicam (Mobic) 15 mg DAILY PO 06/29/17 09:00 06/29/17 08:27 Ascorbic Acid (Vitamin C) 1,000 mg DAILY PO 06/29/17 09:00 06/29/17 08:27 Patient Own Medication PT OWN MED: SELEN... DAILY PO 06/29/17 09:00 Future Hold Patient Own Medication PT OWN MED: VITAMI... DAILY PO 06/29/17 09:00 Future Hold Plan Plan Remarks continue IV antibiotics, follow-up CT-guided cultures Tayla Obrien Jun 29, 2017 10:57
[2017-06-29] MEDS: SODIUM CHLOR 0.9% 1000 ML INJ 1,000 ML IV SCH (11:33)
[2017-06-29 12:00] VITALS: BP 124/63; PULSE 75; RESP 16; TEMP 98.1; O2SAT 96
[2017-06-29 16:00] VITALS: BP 110/64; PULSE 74; RESP 16; TEMP 98; O2SAT 97
[2017-06-29 20:00] VITALS: BP 134/76; PULSE 96; RESP 18; TEMP 98.4; O2SAT 90
[2017-06-30 01:00] VITALS: BP 119/58; PULSE 100; RESP 20; TEMP 97.5; O2SAT 96
[2017-06-30 04:21] VITALS: BP 143/72; PULSE 71; RESP 18; TEMP 97; O2SAT 97
[2017-06-30] MEDS: LEVOTHYROXINE SODIUM 100 MCG TAB PO SCH (06:16)
[2017-06-30] MEDS: INSULIN ASPART SUPPLEMENTAL SCALE SQ SCH (07:46)
[2017-06-30] MEDS: VANCOMYCIN 1 GM/200 ML INJ 200 ML IV SCH (07:47)
[2017-06-30] MEDS: PANTOPRAZOLE SOD 40 MG DELAYED RELEASE TAB PO SCH (07:47)
[2017-06-30] MEDS: ASCORBIC ACID 500 MG TAB PO SCH (07:47)
[2017-06-30] MEDS: MELOXICAM 15 MG TAB PO SCH (07:47)
[2017-06-30] MEDS: CHOLECALCIFEROL (VIT D3) 5000 UNIT CAP PO SCH (07:47)
[2017-06-30] MEDS: DOCUSATE SODIUM 100 MG CAP PO SCH (07:47)
[2017-06-30 07:58] VITALS: BP 122/61; PULSE 68; RESP 18; TEMP 98.1; O2SAT 93
[2017-06-30] MEDS ORDERED: MOBI15TA PO (09:27)
[2017-06-30] MEDS ORDERED: BACT800T5 PO (09:27)
--- NOTE | 2017-06-30 09:29 | HHI.DS ---
Discharge Summary Admission Date Jun 28, 2017 at 15:01 Discharge Date: Jun 30, 2017 Admitting Diagnosis back pain (1) Back pain ICD Code: M54.9 - Dorsalgia, unspecified (2) Inflammation and stiffening of spine ICD Code: M46.90 - Unspecified inflammatory spondylopathy, site unspecified Brief History Ms. Otto is 62 year old female who underwent an L4-5 laminectomy with microdiscectomy for herniated lumbar disc with lumbar radiculopathy on . Following surgery she had improvements of her pain and symptoms. She was doing well until a month following her surgery she developed recurrent pain in her low back. There were no associated trauma or falls. She underwent an epidural injection with Dr. Abbott with improvement. She also recently underwent a follow-up MRI of her lumbar spine few days ago which showed edematous changes throughout the vertebral endplates at L4-5 and with contrast enhancement within the disc. She had presented today for CT-guided biopsy of L4 -5 for culturing. She currently denies fevers, chills. She reports of lumbar pain. She denies chest pain, shortness of breath or difficulty breathing. She is afebrile, normal WBCs. CBC/BMP: 06/28/17 1320 Significant Findings Laboratory Tests Test 06/28/17 13:20 06/29/17 15:12 Red Blood Count 3.97 MIL/MM3 (4.00-5.30) Imaging Last Impressions Needle Biopsy/Aspiration X-Ray 06/28/17 0000 Signed Impressions: Service Date/Time: Wednesday, June 28, 2017 15:24 - CONCLUSION: Uncomplicated needle biopsy of the L4-L5 discs as above. Benedict Rivera MD PE at Discharge Awake, alert, conversing well No acute distress Ambulating without ataxia Moving all her extremities Respirations clear, no wheezing Neck soft supple Skin warm and dry Hospital Course Ms. Otto is 62 year old female who underwent an L4-5 laminectomy with microdiscectomy for herniated lumbar disc with lumbar radiculopathy on . Following surgery she had improvements of her pain and symptoms. She was doing well until a month following her surgery she developed recurrent pain in her low back. There were no associated trauma or falls. She underwent an epidural injection with Dr. Abbott with improvement. She also recently underwent a follow-up MRI of her lumbar spine few days ago which showed edematous changes throughout the vertebral endplates at L4-5 and with contrast enhancement within the disc. She had presented today for CT-guided biopsy of L4 -5 for culturing. She currently denies fevers, chills. She reports of lumbar pain. She denies chest pain, shortness of breath or difficulty breathing. She is afebrile, normal WBCs. 06/29: currently doing well, minimal back pain. Remains afebrile overnight. Cultures pending. 06/30: Her preliminary cultures were coming out negative for infection. She is ambulating. Low back pain controlled. She requests discharge home. She denies fevers, chills. Vital signs without evidence of fevers. She was cleared for discharge by Dr. Dumont. We will continue to follow up with her cultures outpatient. Pt Condition on Discharge: Stable Discharge Disposition: Discharge Home Discharge Instructions DIET: Follow Instructions for: Diabetic Diet ACTIVITIES You can perform: Weight Bearing As Tashi New Medications: Sulfamethoxazole-Trimethoprim (Bactrim DS) 800-160 Mg Tab 1 TAB PO BID for Infection, #20 TAB 0 Refills Continued Medications: Ascorbic Acid (Vitamin C) 250 Mg Tab 1000 MG PO DAILY for Nutritional Supplement, TAB 0 Refills B-Complex Vitamins (B Complex) 1 Cap 1 CAP PO DAILY for Nutritional Supplement, #30 CAP 0 Refills Cholecalciferol (Vitamin D3) 5,000 Unit Cap 5000 UNITS PO DAILY for Nutritional Supplement, #30 CAP 0 Refills Hydrocodone-Acetaminophen (Hydrocodone-Acetaminophen) 10-300 Tab 1 TAB PO Q6H PRN for PAIN, #62 TAB 0 Refills Levothyroxine (Tirosint) 100 Mcg Cap 75 MCG PO DAILY for Thyroid, #30 CAP 0 Refills Meloxicam (Mobic) 15 Mg Tab 15 MG PO DAILY for 30 Days, #30 TAB 3 Refills (This prescription has been renewed) Metformin (Metformin) 850 Mg Tab 850 MG PO BIDPC for Blood Sugar Management, TAB 0 Refills Selenium (Selenium) 200 Mcg Tab 200 MG PO DAILY for Nutritional Supplement, TAB 0 Refills Tizanidine (Zanaflex) 2 Mg Cap 2 MG PO DAILY for Muscle Spasm, CAP 0 Refills Tayla Obrien Jun 30, 2017 09:29
--- NOTE | 2017-06-30 09:29 | HHI.DCPOC ---
Discharge Care Plan Diagnosis: (1) Back pain (2) Inflammation and stiffening of spine Goals to Promote Your Health * To prevent worsening of your condition and complications * To maintain your health at the optimal level Directions to Meet Your Goals Take your medications as prescribed Follow your dietary instruction Follow activity as directed Keep your appointments as scheduled Take your immunizations and boosters as scheduled If your symptoms worsen call your PCP, if no PCP go to Urgent Care Center or Emergency Room Smoking is Dangerous to Your Health. Avoid second hand smoke Call the 24-hour hour crisis hotline for domestic abuse at Tayla Obrien Jun 30, 2017 09:29
== END 2017-06-30 10:39 | disposition home or self-care (01) ==
LOC: HROP 12:17 → HRIP 12:28 → N05A 15:01 → HROP 17:01
PROVIDERS: ADMIT Neurological Surgery; ATTEND Neurological Surgery
DX: M46.46 Discitis, unspecified, lumbar region (principal); M46.90 Unspecified inflammatory spondylopathy, site unspecified; E11.9 Type 2 diabetes mellitus without complications; E03.9 Hypothyroidism, unspecified; Z85.820 Personal history of malignant melanoma of skin
CPT/HCPCS: 62267; 77003; 82948; 85025; 85610; 85652; 85730; 86140; 87015; 87070; 87102; 87116; 87176; 87205; 87206; 94150; 96365; 96366; 96375; 99152; 99153; G0378; J2250; J2270; J3010; J3370; J7030; 77002